=== PATIENT | female | born 1945 | race Caucasian/White ===

== ENCOUNTER 2022-06-23 02:12 | Inpatient (IN) | payer MEDICARE ==
[~2022-06-23 02:12] MED LIST: Nitroglycerin 50 MG/250 ML BOT 250 ML ONE
[2022-06-23] MEDS ORDERED: Morphine 4 MG/ML VIAL ONE (03:21)
[2022-06-23 03:32] LABS: CKMB 2.8 ng/mL (0-6.6)
[2022-06-23] MEDS ORDERED: Nitroglycerin 2% Ointment 1 INCH/1 GM Packet ONE (05:21)
[2022-06-23] MEDS ORDERED: methylPREDNISolone Sod Succ 40 MG VIAL ONE (05:59)
[2022-06-23] MEDS ORDERED: Aspirin 325 MG TAB ONE (05:59)
[2022-06-23] MEDS ORDERED: methylPREDNISolone Sod Succ 40 MG VIAL IVP SCH (06:00)
[2022-06-23] MEDS ORDERED: cefTRIAXone\\ROCEPHIN 2 GM in Sodium Chloride 0.9% 100 ML IVPB SCH (06:00)
[2022-06-23] MEDS ORDERED: Aspirin 325 mg Enteric Coated Tablet PO SCH (06:00)
[2022-06-23] MEDS ORDERED: cefTRIAXone\\ROCEPHIN 2 GM VIAL ONE (06:00)
[2022-06-23 06:23] LABS: Anion Gap 16 mmol/L (10-20); BUN (Urea Nitrogen) 10 mg/dL (9.8-20.1); Calc. Creatinine Clearance 0 mL/min (70-130); Calcium 9.1 mg/dL (7.8-10.44); Carbon Dioxide 22 mmol/L (23-31); Chloride 101 mmol/L (98-107); Estimated GFR 90; Glucose 158 mg/dL (83-110); Magnesium 1.8 mg/dL (1.6-2.6); Potassium 3.5 mmol/L (3.5-5.1); Sodium 135 mmol/L (136-145)
[2022-06-23 06:24] LABS: #Monocytes 0.4 10x3/uL (0.0-1.1); #Neutrophils 8.5 10x3/uL (1.5-8.4); %Basophils 0.3 % (0.0-2.0); %Lymphocytes 8.7 % (18.0-47.0); %Monocytes 4.1 % (0.0-10.0); %Neutrophils 86.6 % (40.0-75.0); Hemoglobin 13.5 g/dL (12.0-15.5); Mean Corpuscular HGB CONC 34.4 g/dL (32.0-36.0); Mean Corpuscular Hemoglobin 33.5 pg (27.0-33.0); Mean Corpuscular Volume 97.5 fl (81.6-98.3); Mean Platelet Volume 10.8 fl (7.4-10.4); Platelet Count 235 10x3/uL (150-450); RBC Distribution Width 12.1 % (11.5-14.5); Red Blood Cell (RBC) Count 4.03 10x6/uL (3.90-5.03); White Blood Cell (WBC) Count 9.8 10x3/uL (3.5-10.5)
[2022-06-23 06:30] LABS: Critical Call Chem Troponin I RESULT DECREASING
[2022-06-23] MEDS ORDERED: Promethazine HCl 12.5 MG in Sodium Chloride 0.9% 50 ML IVPB SCH (06:45)
[2022-06-23] MEDS ORDERED: Promethazine HCl 25 MG/ML VIAL ONE (06:46)
[2022-06-23] MEDS ORDERED: Azithromycin 500 MG VIAL ONE (07:19)
[2022-06-23] MEDS: Nitroglycerin 2% Ointment 1 INCH/1 GM Packet TOP SCH ×5 (07:39→21:36)
[2022-06-23] MEDS: Azithromycin 500 MG in Sodium Chloride 0.9% 250 ML 250 ML IVPB SCH (07:40)
[2022-06-23] MEDS: Arformoterol 15 MCG/2 ML NEB NEB SCH ×2 (07:40→19:55)
[2022-06-23] MEDS ORDERED: Dronedarone HCl 400 MG TAB PO SCH (08:00)
[2022-06-23] MEDS ORDERED: Furosemide 40 MG/4 ML VIAL ONE (08:01)
[2022-06-23] MEDS: Amlodipine 10 MG TAB PO SCH (08:12)
[2022-06-23] MEDS: Apixaban 5 MG TAB PO SCH ×2 (08:13→21:12)
[2022-06-23] MEDS: Lisinopril 2.5 MG TAB PO SCH (08:13)
[2022-06-23] MEDS: Propranolol 40 MG TAB PO SCH ×2 (08:13→21:14)
[2022-06-23] MEDS ORDERED: Apixaban 5 MG TAB ONE (08:16)
[2022-06-23] MEDS ORDERED: Amlodipine 10 MG TAB ONE (08:16)
[2022-06-23 09:20] LABS: Legionella Urinary Ag Negative (Negative); Strep pneumo Urine Ag NEGATIVE (NEGATIVE)
[2022-06-23 10:20] VITALS: BMI 31.1
[2022-06-23] MEDS: methylPREDNISolone Sod Succ 40 MG VIAL IVP SCH ×2 (13:23→21:15)
[2022-06-23 14:26] LABS: Troponin I 0.313 ng/mL (< 0.028)
[2022-06-23] MEDS: Acetaminophen 325 MG TAB PO PRN (14:33)
[2022-06-23] MEDS: Dronedarone HCl 400 MG TAB PO SCH (17:25)
[2022-06-23] MEDS ORDERED: Dextrose 50% Abboject 50 ML SYRINGE SLOW IVP PRN (19:14)
[2022-06-23] MEDS ORDERED: Dextrose 5% in Water 1,000 ML IV PRN (19:14)
[2022-06-23] MEDS: Budesonide 0.5 MG/2 ML NEB NEB SCH (20:00)
[2022-06-23] MEDS ORDERED: Non-Formulary Medication 1 EACH (Brimonidine Tartrate/Timolol [Combigan 0.2%-0.5% Eye Drop OP SCH (21:00)
[2022-06-23] MEDS ORDERED: PROPRANOLOL HCL 120 MG PO SCH (21:00)
[2022-06-23] MEDS ORDERED: Timolol 0.5% Ophth Soln 5 ml Bottle EA EYE SCH (21:00)
[2022-06-23] MEDS: Brimonidine Tartrate 0.2% Ophth Soln 5 ml Bottle EA EYE SCH (21:12)
[2022-06-23] MEDS: Gabapentin 300 MG CAP PO SCH (21:13)
[2022-06-23] MEDS: Timolol 0.5% Ophth Soln 5 ml Bottle EA EYE SCH (21:14)
[2022-06-23] MEDS: Rosuvastatin 20 MG TAB PO SCH (21:14)
[2022-06-23] MEDS: Oxybutynin 5 MG TAB PO SCH (21:14)
[2022-06-23] MEDS ORDERED: Primidone 50 MG TAB PO SCH (22:00)
[2022-06-23] MEDS ORDERED: Primidone 250 MG TAB PO SCH (22:00)
[2022-06-24] MEDS ORDERED: Furosemide 40 MG/4 ML VIAL SLOW IVP SCH (01:00)
[2022-06-24 04:14] LABS: Mean Corpuscular HGB CONC 34.3 g/dL (32.0-36.0); Mean Corpuscular Hemoglobin 33.4 pg (27.0-33.0); Mean Corpuscular Volume 97.4 fl (81.6-98.3); Platelet Count 201 10x3/uL (150-450); RBC Distribution Width 12.4 % (11.5-14.5); Red Blood Cell (RBC) Count 4.19 10x6/uL (3.90-5.03); White Blood Cell (WBC) Count 12.2 10x3/uL (3.5-10.5)
[2022-06-24 04:28] LABS: Anion Gap 15 mmol/L (10-20); BUN (Urea Nitrogen) 14 mg/dL (9.8-20.1); Calc. Creatinine Clearance 79 mL/min (70-130); Carbon Dioxide 22 mmol/L (23-31); Chloride 103 mmol/L (98-107); Estimated GFR 67; Glucose 167 mg/dL (83-110); Potassium 3.6 mmol/L (3.5-5.1); Sodium 136 mmol/L (136-145)
[2022-06-24 04:52] LABS: MDiff Complete? YES
[2022-06-24 04:54] LABS: Lymphocytes 13 % (21-51); Monocytes 11 % (0-10); Neutrophil 76 % (42-75)
[2022-06-24 04:55] LABS: Platelet Morphology Comment Appears Adequate; RBC Morphology Normal
[2022-06-24] MEDS: Nitroglycerin 2% Ointment 1 INCH/1 GM Packet TOP SCH ×3 (05:03→21:45)
[2022-06-24] MEDS: methylPREDNISolone Sod Succ 40 MG VIAL IVP SCH (06:38)
[2022-06-24] MEDS: Budesonide 0.5 MG/2 ML NEB NEB SCH ×2 (07:00→19:56)
[2022-06-24] MEDS: Arformoterol 15 MCG/2 ML NEB NEB SCH ×2 (07:00→19:57)
[2022-06-24] MEDS: Potassium Chloride 20 MEQ TAB PO SCH (08:00)
[2022-06-24] MEDS: Aspirin 81 mg Enteric Coated Tablet PO SCH (08:00)
[2022-06-24] MEDS: Venlafaxine HCl XR 75 MG CAP PO SCH (08:00)
[2022-06-24] MEDS: Apixaban 5 MG TAB PO SCH ×2 (08:01→20:33)
[2022-06-24] MEDS: Glimepiride 2 MG TAB PO SCH ×2 (08:01→17:36)
[2022-06-24] MEDS: Brimonidine Tartrate 0.2% Ophth Soln 5 ml Bottle EA EYE SCH ×2 (08:02→20:56)
[2022-06-24] MEDS: Oxybutynin 5 MG TAB PO SCH ×2 (08:02→20:35)
[2022-06-24] MEDS: Timolol 0.5% Ophth Soln 5 ml Bottle EA EYE SCH ×2 (08:02→20:56)
[2022-06-24] MEDS: Amlodipine 10 MG TAB PO SCH (08:10)
[2022-06-24] MEDS: Lisinopril 2.5 MG TAB PO SCH (08:10)
[2022-06-24] MEDS: Propranolol 40 MG TAB PO SCH (08:11)
[2022-06-24] MEDS: Azithromycin 500 MG in Sodium Chloride 0.9% 250 ML 250 ML IVPB SCH (08:14)
[2022-06-24] MEDS: Dronedarone HCl 400 MG TAB PO SCH ×2 (08:20→20:34)
[2022-06-24] MEDS ORDERED: Primidone 50 MG TAB PO SCH (09:00)
[2022-06-24] MEDS ORDERED: Escitalopram Oxalate 10 mg Tablet PO SCH (09:00)
[2022-06-24] MEDS ORDERED: Rosuvastatin 20 MG TAB PO SCH (09:00)
[2022-06-24] MEDS ORDERED: Atropine Sulfate 1 mg/10 ml Syringe ONE (09:31)
[2022-06-24 10:29] LABS: Actual Bicarbonate (HCO3v) 25 mEq/L (22-28); Base Excess -0.8 mEq/L (-2.0 to +3.0); Calcium, Ionized (venous) 1.11 mmol/L (1.16-1.32); Chloride (VBG) 101 mmol/L (98-106); Hemoglobin (Hb) 14.2 g/dL (11.7-16.1); Puncture Site Other Site; pH (venous) 7.36 (7.32-7.43)
[2022-06-24] MEDS ORDERED: tiZANidine HCl 4 MG TAB PO PRN (12:36)
[2022-06-24] MEDS: Acetaminophen 325 MG TAB PO PRN ×2 (13:34→20:38)
[2022-06-24] MEDS ORDERED: Dextrose 50% Abboject 50 ML SYRINGE SLOW IVP PRN (14:15)
[2022-06-24] MEDS ORDERED: Dextrose 5% in Water 1,000 ML IV PRN (14:15)
[2022-06-24] MEDS ORDERED: Primidone 250 MG TAB PO SCH (15:00)
[2022-06-24] MEDS: Topiramate 100 MG TAB PO SCH (15:28)
[2022-06-24] MEDS: Acyclovir 400 mg Tablet PO SCH (20:33)
[2022-06-24] MEDS: Gabapentin 300 MG CAP PO SCH (20:34)
[2022-06-24] MEDS: Fluticasone Propionate Nasal Spray 16 gm Bottle NASAL SCH (20:34)
[2022-06-24] MEDS: Melatonin 3 MG TAB PO SCH (20:35)
[2022-06-24] MEDS: Rosuvastatin 20 MG TAB PO SCH (20:36)
[2022-06-24] MEDS: Primidone 50 MG TAB PO SCH (20:55)
[2022-06-25] MEDS: Acetaminophen 325 MG TAB PO PRN ×3 (04:15→17:55)
[2022-06-25] MEDS: Levothyroxine Sodium 100 MCG TAB PO SCH (06:37)
[2022-06-25] MEDS: Arformoterol 15 MCG/2 ML NEB NEB SCH ×2 (07:20→20:20)
[2022-06-25] MEDS: Budesonide 0.5 MG/2 ML NEB NEB SCH ×2 (07:20→20:15)
[2022-06-25] MEDS: Nitroglycerin 2% Ointment 1 INCH/1 GM Packet TOP SCH ×3 (07:42→22:06)
[2022-06-25] MEDS ORDERED: predniSONE 20 MG TAB PO SCH (08:00)
[2022-06-25] MEDS: Aspirin 81 mg Enteric Coated Tablet PO SCH (08:23)
[2022-06-25] MEDS: Glimepiride 2 MG TAB PO SCH ×3 (08:23→17:04)
[2022-06-25] MEDS: Lisinopril 2.5 MG TAB PO SCH (08:25)
[2022-06-25] MEDS: Potassium Chloride 20 MEQ TAB PO SCH (08:26)
[2022-06-25] MEDS: Estradiol 1 MG TAB PO SCH (08:26)
[2022-06-25] MEDS: Apixaban 5 MG TAB PO SCH ×2 (08:26→20:30)
[2022-06-25] MEDS: Venlafaxine HCl XR 75 MG CAP PO SCH (08:26)
[2022-06-25] MEDS: Acyclovir 400 mg Tablet PO SCH ×2 (08:26→20:46)
[2022-06-25] MEDS: Amlodipine 10 MG TAB PO SCH (08:26)
[2022-06-25] MEDS: Topiramate 100 MG TAB PO SCH ×2 (08:27→17:00)
[2022-06-25] MEDS: predniSONE 10 MG TAB PO SCH (08:27)
[2022-06-25] MEDS: Primidone 50 MG TAB PO SCH ×3 (08:29→20:30)
[2022-06-25] MEDS: Oxybutynin 5 MG TAB PO SCH ×2 (08:30→20:46)
[2022-06-25] MEDS: Azithromycin 500 MG in Sodium Chloride 0.9% 250 ML 250 ML IVPB SCH (08:32)
[2022-06-25] MEDS ORDERED: VANCOMYCIN 1.25 GM/250 ML BAG IVPB SCH (09:30)
[2022-06-25] MEDS: Dronedarone HCl 400 MG TAB PO SCH ×2 (09:32→20:31)
[2022-06-25] MEDS: Timolol 0.5% Ophth Soln 5 ml Bottle EA EYE SCH ×2 (09:49→20:44)
[2022-06-25] MEDS: Brimonidine Tartrate 0.2% Ophth Soln 5 ml Bottle EA EYE SCH ×2 (09:49→20:43)
[2022-06-25] MEDS: Fluticasone Propionate Nasal Spray 16 gm Bottle NASAL SCH ×2 (09:49→20:43)
[2022-06-25] MEDS ORDERED: VANCOMYCIN 1.75 GM/350 ML BAG 1.75 GM in Premix Bag 1 BAG IVPB SCH (10:00)
[2022-06-25 13:28] LABS: Bilirubin Neg (Negative); Blood, Urine 250 (Negative); Clarity Clear (Clear); Glucose, Urine (Dipstick) Normal (Negative); Ketone, Urine Negative (Negative); Leukocyte Negative (Negative); Nitrite Negative (Negative); Protein, Urine (Dipstick) 15 mg/dl (Neg-Trace); Urobilinogen Normal mg/dL (Less than 2)
[2022-06-25 13:33] LABS: Squamous Epithelial 0-3 HPF (0-3); WBC/HPF 0-3 HPF (0-3)
[2022-06-25 13:34] LABS: Bacteria/HPF None Seen HPF (None Seen)
[2022-06-25] MEDS ORDERED: Metoclopramide HCl 10 MG/2 ML VIAL IVP PRN (14:02)
[2022-06-25] MEDS: Carvedilol 3.125 MG TAB PO SCH (16:58)
[2022-06-25] MEDS: Vancomycin HCl 1 GM in Sodium Chloride 0.9% 250 ML 250 ML IVPB SCH (20:28)
[2022-06-25] MEDS: Rosuvastatin 20 MG TAB PO SCH (20:29)
[2022-06-25] MEDS: Gabapentin 300 MG CAP PO SCH (20:30)
[2022-06-25] MEDS: Melatonin 3 MG TAB PO SCH (20:46)
[2022-06-26 04:49] LABS: #Eosinphils 0.2 10x3/uL (0.0-0.5); #Monocytes 0.9 10x3/uL (0.0-1.1); %Basophils 0.4 % (0.0-2.0); %Eosinophils 2.4 % (0.0-6.0); %Lymphocytes 20.8 % (18.0-47.0); %Neutrophils 66.1 % (40.0-75.0); Hemoglobin 13.1 g/dL (12.0-15.5); Mean Corpuscular HGB CONC 34.5 g/dL (32.0-36.0); Mean Corpuscular Hemoglobin 33.4 pg (27.0-33.0); Mean Corpuscular Volume 96.9 fl (81.6-98.3); Mean Platelet Volume 10.6 fl (7.4-10.4); Platelet Count 222 10x3/uL (150-450); RBC Distribution Width 12.2 % (11.5-14.5); Red Blood Cell (RBC) Count 3.92 10x6/uL (3.90-5.03); White Blood Cell (WBC) Count 9.1 10x3/uL (3.5-10.5)
[2022-06-26 04:55] LABS: ALT (SGPT) 109 U/L (8-55); AST (SGOT) 209 U/L (5-34); Albumin 3.9 g/dL (3.4-4.8); Alkaline Phosphatase 72 U/L (40-110); Anion Gap 18 mmol/L (10-20); BUN (Urea Nitrogen) 10 mg/dL (9.8-20.1); Bilirubin, Total 0.3 mg/dL (0.2-1.2); Calc. Creatinine Clearance 110 mL/min (70-130); Calcium 9.6 mg/dL (7.8-10.44); Carbon Dioxide 21 mmol/L (23-31); Chloride 102 mmol/L (98-107); Estimated GFR 92; Globulin 3.6 g/dL (2.4-3.5); Glucose 86 mg/dL (83-110); Magnesium 2.1 mg/dL (1.6-2.6); Phosphorus 1.8 mg/dL (2.3-4.7); Potassium 3.8 mmol/L (3.5-5.1); Protein, Total 7.5 g/dL (5.8-8.1); Sodium 137 mmol/L (136-145)
[2022-06-26] MEDS: Arformoterol 15 MCG/2 ML NEB NEB SCH ×2 (06:30→20:40)
[2022-06-26] MEDS: Budesonide 0.5 MG/2 ML NEB NEB SCH ×2 (06:30→20:30)
[2022-06-26] MEDS: Levothyroxine Sodium 100 MCG TAB PO SCH (06:42)
[2022-06-26] MEDS: Nitroglycerin 2% Ointment 1 INCH/1 GM Packet TOP SCH ×3 (06:43→21:20)
[2022-06-26] MEDS: Carvedilol 3.125 MG TAB PO SCH (07:58)
[2022-06-26] MEDS: predniSONE 10 MG TAB PO SCH (07:58)
[2022-06-26] MEDS: Amlodipine 10 MG TAB PO SCH (07:59)
[2022-06-26] MEDS: Potassium Chloride 20 MEQ TAB PO SCH (07:59)
[2022-06-26] MEDS: Apixaban 5 MG TAB PO SCH ×2 (07:59→21:16)
[2022-06-26] MEDS: Lisinopril 2.5 MG TAB PO SCH (08:00)
[2022-06-26] MEDS: Aspirin 81 mg Enteric Coated Tablet PO SCH (08:01)
[2022-06-26] MEDS: Venlafaxine HCl XR 75 MG CAP PO SCH (08:01)
[2022-06-26] MEDS: Brimonidine Tartrate 0.2% Ophth Soln 5 ml Bottle EA EYE SCH ×2 (08:02→21:19)
[2022-06-26] MEDS: Oxybutynin 5 MG TAB PO SCH ×2 (08:02→21:18)
[2022-06-26] MEDS: Acyclovir 400 mg Tablet PO SCH ×2 (08:02→21:16)
[2022-06-26] MEDS: Dronedarone HCl 400 MG TAB PO SCH ×2 (08:04→21:18)
[2022-06-26] MEDS: Primidone 50 MG TAB PO SCH ×3 (08:05→21:17)
[2022-06-26] MEDS: Glimepiride 2 MG TAB PO SCH ×2 (08:05→10:10)
[2022-06-26] MEDS: Timolol 0.5% Ophth Soln 5 ml Bottle EA EYE SCH ×2 (08:06→21:20)
[2022-06-26] MEDS: Azithromycin 500 MG in Sodium Chloride 0.9% 250 ML 250 ML IVPB SCH (08:09)
[2022-06-26] MEDS: Fluticasone Propionate Nasal Spray 16 gm Bottle NASAL SCH ×2 (08:10→21:19)
[2022-06-26] MEDS: Acetaminophen 325 MG TAB PO PRN ×2 (08:30→21:32)
[2022-06-26] MEDS: Topiramate 100 MG TAB PO SCH ×2 (08:31→16:57)
[2022-06-26] MEDS: Estradiol 1 MG TAB PO SCH (08:31)
[2022-06-26] MEDS: Vancomycin HCl 1 GM in Sodium Chloride 0.9% 250 ML 250 ML IVPB SCH (09:58)
[2022-06-26] MEDS: guaiFENesin ER 600 MG TAB PO SCH ×2 (09:58→21:22)
[2022-06-26] MEDS: Senokot S 8.6-50 MG TAB PO SCH ×2 (09:59→21:16)
[2022-06-26] MEDS: Polyethylene Glycol 3350 17 GM Packet PER TUBE SCH (09:59)
[2022-06-26] MEDS: HumaLOG 300 UNITS/3 ML VIAL SC PRN (12:03)
[2022-06-26] MEDS: Oxacillin 2 GM in Sodium Chloride 0.9% 100 ML IVPB SCH ×3 (13:08→21:12)
[2022-06-26] MEDS: Carvedilol 6.25 MG TAB PO SCH (15:39)
[2022-06-26] MEDS: Gabapentin 300 MG CAP PO SCH (21:15)
[2022-06-26] MEDS: Rosuvastatin 20 MG TAB PO SCH (21:15)
[2022-06-26] MEDS: Zolpidem Tartrate 5 MG TAB PO PRN (21:16)
[2022-06-26] MEDS: Melatonin 3 MG TAB PO SCH (21:18)
[2022-06-27] MEDS: Oxacillin 2 GM in Sodium Chloride 0.9% 100 ML IVPB SCH ×6 (00:24→21:07)
[2022-06-27 04:18] LABS: #Basophils 0.1 10x3/uL (0.0-0.2); #Eosinphils 0.1 10x3/uL (0.0-0.5); #Monocytes 0.8 10x3/uL (0.0-1.1); #Neutrophils 4.4 10x3/uL (1.5-8.4); %Basophils 0.7 % (0.0-2.0); %Eosinophils 1.9 % (0.0-6.0); %Lymphocytes 24.9 % (18.0-47.0); %Monocytes 10.8 % (0.0-10.0); %Neutrophils 61.4 % (40.0-75.0); Mean Corpuscular HGB CONC 34.9 g/dL (32.0-36.0); Mean Corpuscular Hemoglobin 33.6 pg (27.0-33.0); Mean Corpuscular Volume 96.4 fl (81.6-98.3); Mean Platelet Volume 10.9 fl (7.4-10.4); Platelet Count 252 10x3/uL (150-450); RBC Distribution Width 12.2 % (11.5-14.5); Red Blood Cell (RBC) Count 3.57 10x6/uL (3.90-5.03); White Blood Cell (WBC) Count 7.2 10x3/uL (3.5-10.5)
[2022-06-27 04:41] LABS: ALT (SGPT) 89 U/L (8-55); AST (SGOT) 127 U/L (5-34); Albumin 3.4 g/dL (3.4-4.8); Alkaline Phosphatase 60 U/L (40-110); Anion Gap 14 mmol/L (10-20); BUN (Urea Nitrogen) 9 mg/dL (9.8-20.1); Bilirubin, Total 0.3 mg/dL (0.2-1.2); Calc. Creatinine Clearance 111 mL/min (70-130); Calcium 8.9 mg/dL (7.8-10.44); Carbon Dioxide 21 mmol/L (23-31); Chloride 106 mmol/L (98-107); Estimated GFR 92; Globulin 3.4 g/dL (2.4-3.5); Glucose 108 mg/dL (83-110); Magnesium 2.1 mg/dL (1.6-2.6); Phosphorus 2.7 mg/dL (2.3-4.7); Potassium 3.7 mmol/L (3.5-5.1); Protein, Total 6.8 g/dL (5.8-8.1); Sodium 137 mmol/L (136-145)
[2022-06-27] MEDS: Levothyroxine Sodium 100 MCG TAB PO SCH (06:19)
[2022-06-27] MEDS: Nitroglycerin 2% Ointment 1 INCH/1 GM Packet TOP SCH ×3 (06:19→20:35)
[2022-06-27] MEDS: Potassium Chloride 20 MEQ TAB PO SCH (08:21)
[2022-06-27] MEDS: Aspirin 81 mg Enteric Coated Tablet PO SCH (08:21)
[2022-06-27] MEDS: Amlodipine 10 MG TAB PO SCH (08:21)
[2022-06-27] MEDS: Senokot S 8.6-50 MG TAB PO SCH (08:21)
[2022-06-27] MEDS: Venlafaxine HCl XR 75 MG CAP PO SCH (08:21)
[2022-06-27] MEDS: Apixaban 5 MG TAB PO SCH ×2 (08:21→20:38)
[2022-06-27] MEDS: Carvedilol 6.25 MG TAB PO SCH ×2 (08:22→17:09)
[2022-06-27] MEDS: Dronedarone HCl 400 MG TAB PO SCH ×2 (08:22→20:39)
[2022-06-27] MEDS: Lisinopril 2.5 MG TAB PO SCH (08:22)
[2022-06-27] MEDS: predniSONE 10 MG TAB PO SCH (08:22)
[2022-06-27] MEDS: guaiFENesin ER 600 MG TAB PO SCH ×2 (08:22→20:39)
[2022-06-27] MEDS: Polyethylene Glycol 3350 17 GM Packet PER TUBE SCH (08:23)
[2022-06-27] MEDS: Topiramate 100 MG TAB PO SCH ×2 (09:14→15:36)
[2022-06-27] MEDS: Primidone 50 MG TAB PO SCH ×3 (09:14→20:35)
[2022-06-27] MEDS: Oxybutynin 5 MG TAB PO SCH ×2 (09:14→20:40)
[2022-06-27] MEDS: Acyclovir 400 mg Tablet PO SCH ×2 (09:14→21:00)
[2022-06-27] MEDS: Estradiol 1 MG TAB PO SCH (09:14)
[2022-06-27] MEDS: Budesonide 0.5 MG/2 ML NEB NEB SCH (09:15)
[2022-06-27] MEDS: Fluticasone Propionate Nasal Spray 16 gm Bottle NASAL SCH ×2 (09:16→20:42)
[2022-06-27] MEDS: Timolol 0.5% Ophth Soln 5 ml Bottle EA EYE SCH ×2 (09:16→20:46)
[2022-06-27] MEDS: Brimonidine Tartrate 0.2% Ophth Soln 5 ml Bottle EA EYE SCH ×2 (09:16→20:46)
[2022-06-27] MEDS: Arformoterol 15 MCG/2 ML NEB NEB SCH (09:25)
[2022-06-27] MEDS: Acetaminophen 325 MG TAB PO PRN (10:14)
[2022-06-27] MEDS: HumaLOG 300 UNITS/3 ML VIAL SC PRN ×2 (11:45→15:48)
[2022-06-27] MEDS: Gabapentin 300 MG CAP PO SCH (20:38)
[2022-06-27] MEDS: Rosuvastatin 20 MG TAB PO SCH (20:39)
[2022-06-27] MEDS: Melatonin 3 MG TAB PO SCH (20:40)
[2022-06-28] MEDS: Budesonide 0.5 MG/2 ML NEB NEB SCH ×3 (01:25→20:08)
[2022-06-28] MEDS: Arformoterol 15 MCG/2 ML NEB NEB SCH ×3 (01:25→20:09)
[2022-06-28] MEDS: Oxacillin 2 GM in Sodium Chloride 0.9% 100 ML IVPB SCH ×6 (02:00→23:29)
[2022-06-28] MEDS ORDERED: Amlodipine 5 MG TAB PO SCH (02:15)
[2022-06-28] MEDS: Senokot S 8.6-50 MG TAB PO SCH ×3 (03:18→23:35)
[2022-06-28] MEDS: Levothyroxine Sodium 100 MCG TAB PO SCH (05:39)
[2022-06-28] MEDS: Nitroglycerin 2% Ointment 1 INCH/1 GM Packet TOP SCH ×3 (06:16→23:38)
[2022-06-28] MEDS: Acyclovir 400 mg Tablet PO SCH ×2 (08:03→23:37)
[2022-06-28] MEDS: Primidone 50 MG TAB PO SCH ×3 (08:03→23:35)
[2022-06-28] MEDS: hydrALAZINE 25 MG TAB PO SCH ×3 (08:04→23:36)
[2022-06-28] MEDS: Apixaban 5 MG TAB PO SCH ×2 (08:04→23:37)
[2022-06-28] MEDS: Dronedarone HCl 400 MG TAB PO SCH ×2 (08:04→23:36)
[2022-06-28] MEDS: Topiramate 100 MG TAB PO SCH ×2 (08:04→16:57)
[2022-06-28] MEDS: predniSONE 10 MG TAB PO SCH (08:04)
[2022-06-28] MEDS: guaiFENesin ER 600 MG TAB PO SCH ×2 (08:04→23:38)
[2022-06-28] MEDS: Lisinopril 5 MG TAB PO SCH ×2 (08:04→23:37)
[2022-06-28] MEDS: Oxybutynin 5 MG TAB PO SCH ×2 (08:04→23:37)
[2022-06-28] MEDS: Carvedilol 6.25 MG TAB PO SCH ×2 (08:05→16:57)
[2022-06-28] MEDS: Estradiol 1 MG TAB PO SCH (08:05)
[2022-06-28] MEDS: Polyethylene Glycol 3350 17 GM Packet PER TUBE SCH (08:05)
[2022-06-28] MEDS: Venlafaxine HCl XR 75 MG CAP PO SCH (08:05)
[2022-06-28] MEDS: Potassium Chloride 20 MEQ TAB PO SCH (08:05)
[2022-06-28] MEDS: Amlodipine 10 MG TAB PO SCH (08:05)
[2022-06-28] MEDS: Aspirin 81 mg Enteric Coated Tablet PO SCH (08:05)
[2022-06-28] MEDS: Timolol 0.5% Ophth Soln 5 ml Bottle EA EYE SCH ×2 (08:06→23:30)
[2022-06-28] MEDS: Brimonidine Tartrate 0.2% Ophth Soln 5 ml Bottle EA EYE SCH ×2 (08:06→23:31)
[2022-06-28] MEDS: Fluticasone Propionate Nasal Spray 16 gm Bottle NASAL SCH ×2 (08:06→23:30)
[2022-06-28] MEDS: Acetaminophen 325 MG TAB PO PRN (08:22)
[2022-06-28] MEDS: HumaLOG 300 UNITS/3 ML VIAL SC PRN ×2 (11:48→16:57)
[2022-06-28] MEDS ORDERED: Bisacodyl 10 MG SUPP PR SCH (13:00)
[2022-06-28 14:12] LABS: #Monocytes 0.2 10x3/uL (0.0-1.1); #Neutrophils 8.1 10x3/uL (1.5-8.4); %Basophils 0.4 % (0.0-2.0); %Eosinophils 0.3 % (0.0-6.0); %Lymphocytes 9.9 % (18.0-47.0); %Monocytes 2.3 % (0.0-10.0); %Neutrophils 86.5 % (40.0-75.0); Hemoglobin 12.4 g/dL (12.0-15.5); Mean Corpuscular HGB CONC 34.7 g/dL (32.0-36.0); Mean Corpuscular Hemoglobin 33.7 pg (27.0-33.0); Platelet Count 333 10x3/uL (150-450); RBC Distribution Width 12.1 % (11.5-14.5); Red Blood Cell (RBC) Count 3.68 10x6/uL (3.90-5.03); White Blood Cell (WBC) Count 9.4 10x3/uL (3.5-10.5)
[2022-06-28 14:23] LABS: ALT (SGPT) 68 U/L (8-55); AST (SGOT) 59 U/L (5-34); Albumin 3.6 g/dL (3.4-4.8); Alkaline Phosphatase 65 U/L (40-110); Anion Gap 14 mmol/L (10-20); BUN (Urea Nitrogen) 9 mg/dL (9.8-20.1); Bilirubin, Total 0.2 mg/dL (0.2-1.2); Calc. Creatinine Clearance 105 mL/min (70-130); Calcium 9.4 mg/dL (7.8-10.44); Carbon Dioxide 20 mmol/L (23-31); Chloride 105 mmol/L (98-107); Estimated GFR 91; Globulin 3.7 g/dL (2.4-3.5); Glucose 170 mg/dL (83-110); Potassium 4.2 mmol/L (3.5-5.1); Protein, Total 7.3 g/dL (5.8-8.1); Sodium 135 mmol/L (136-145)
[2022-06-28] MEDS: Rosuvastatin 20 MG TAB PO SCH (23:35)
[2022-06-28] MEDS: Gabapentin 300 MG CAP PO SCH (23:36)
[2022-06-28] MEDS: Melatonin 3 MG TAB PO SCH (23:38)
[2022-06-28] MEDS: Zolpidem Tartrate 5 MG TAB PO PRN (23:46)
[2022-06-29] MEDS ORDERED: GUAIFENESIN SF SOLN 200 MG/10 ML UDCUP PO SCH (01:30)
[2022-06-29] MEDS: Oxacillin 2 GM in Sodium Chloride 0.9% 100 ML IVPB SCH ×6 (03:33→22:12)
[2022-06-29 05:34] LABS: ALT (SGPT) 47 U/L (8-55); AST (SGOT) 40 U/L (5-34); Albumin 3.3 g/dL (3.4-4.8); Alkaline Phosphatase 55 U/L (40-110); Anion Gap 13 mmol/L (10-20); BUN (Urea Nitrogen) 12 mg/dL (9.8-20.1); Bilirubin, Total 0.3 mg/dL (0.2-1.2); Calc. Creatinine Clearance 110 mL/min (70-130); Calcium 9.1 mg/dL (7.8-10.44); Carbon Dioxide 20 mmol/L (23-31); Chloride 106 mmol/L (98-107); Estimated GFR 92; Globulin 3.4 g/dL (2.4-3.5); Glucose 110 mg/dL (83-110); Potassium 3.6 mmol/L (3.5-5.1); Protein, Total 6.7 g/dL (5.8-8.1); Sodium 135 mmol/L (136-145)
[2022-06-29 05:42] LABS: #Basophils 0.1 10x3/uL (0.0-0.2); #Eosinphils 0.3 10x3/uL (0.0-0.5); #Monocytes 0.7 10x3/uL (0.0-1.1); #Neutrophils 5.7 10x3/uL (1.5-8.4); %Basophils 0.8 % (0.0-2.0); %Eosinophils 3.5 % (0.0-6.0); %Lymphocytes 25.1 % (18.0-47.0); %Monocytes 7.9 % (0.0-10.0); Mean Corpuscular HGB CONC 35.1 g/dL (32.0-36.0); Mean Corpuscular Hemoglobin 33.7 pg (27.0-33.0); Mean Corpuscular Volume 96.1 fl (81.6-98.3); Mean Platelet Volume 10.6 fl (7.4-10.4); Platelet Count 354 10x3/uL (150-450); RBC Distribution Width 11.9 % (11.5-14.5); Red Blood Cell (RBC) Count 3.56 10x6/uL (3.90-5.03); White Blood Cell (WBC) Count 9.2 10x3/uL (3.5-10.5)
[2022-06-29] MEDS: Levothyroxine Sodium 100 MCG TAB PO SCH (06:39)
[2022-06-29] MEDS: hydrALAZINE 25 MG TAB PO SCH ×3 (06:40→22:14)
[2022-06-29] MEDS: Nitroglycerin 2% Ointment 1 INCH/1 GM Packet TOP SCH ×3 (06:40→22:21)
[2022-06-29] MEDS: Arformoterol 15 MCG/2 ML NEB NEB SCH ×2 (07:45→20:16)
[2022-06-29] MEDS: Budesonide 0.5 MG/2 ML NEB NEB SCH (08:28)
[2022-06-29] MEDS: Fluticasone Propionate Nasal Spray 16 gm Bottle NASAL SCH ×2 (08:35→22:00)
[2022-06-29] MEDS: Apixaban 5 MG TAB PO SCH ×2 (08:35→22:18)
[2022-06-29] MEDS: predniSONE 10 MG TAB PO SCH (08:36)
[2022-06-29] MEDS: Acyclovir 400 mg Tablet PO SCH ×2 (08:36→22:15)
[2022-06-29] MEDS: Potassium Chloride 20 MEQ TAB PO SCH (08:36)
[2022-06-29] MEDS: Oxybutynin 5 MG TAB PO SCH ×2 (08:36→22:15)
[2022-06-29] MEDS: Estradiol 1 MG TAB PO SCH (08:36)
[2022-06-29] MEDS: Venlafaxine HCl XR 75 MG CAP PO SCH (08:36)
[2022-06-29] MEDS: Senokot S 8.6-50 MG TAB PO SCH ×2 (08:36→22:00)
[2022-06-29] MEDS: guaiFENesin ER 600 MG TAB PO SCH ×2 (08:36→22:18)
[2022-06-29] MEDS: Topiramate 100 MG TAB PO SCH ×2 (08:37→16:13)
[2022-06-29] MEDS: Carvedilol 6.25 MG TAB PO SCH ×2 (08:37→16:13)
[2022-06-29] MEDS: Dronedarone HCl 400 MG TAB PO SCH ×2 (08:37→22:00)
[2022-06-29] MEDS: Aspirin 81 mg Enteric Coated Tablet PO SCH (08:37)
[2022-06-29] MEDS: Polyethylene Glycol 3350 17 GM Packet PER TUBE SCH (08:37)
[2022-06-29] MEDS: Amlodipine 10 MG TAB PO SCH (08:37)
[2022-06-29] MEDS: Brimonidine Tartrate 0.2% Ophth Soln 5 ml Bottle EA EYE SCH ×2 (08:37→22:00)
[2022-06-29] MEDS: Primidone 50 MG TAB PO SCH ×3 (08:37→22:13)
[2022-06-29] MEDS: Timolol 0.5% Ophth Soln 5 ml Bottle EA EYE SCH ×2 (08:43→22:00)
[2022-06-29] MEDS: Acetaminophen 325 MG TAB PO PRN (11:46)
[2022-06-29] MEDS: HumaLOG 300 UNITS/3 ML VIAL SC PRN (11:46)
[2022-06-29] MEDS: Lisinopril 5 MG TAB PO SCH ×2 (22:00→22:15)
[2022-06-29] MEDS: Gabapentin 300 MG CAP PO SCH (22:16)
[2022-06-29] MEDS: Rosuvastatin 20 MG TAB PO SCH (22:16)
[2022-06-29] MEDS: Melatonin 3 MG TAB PO SCH (22:17)
[2022-06-29] MEDS: Zolpidem Tartrate 5 MG TAB PO PRN (22:24)
[2022-06-30] MEDS: Oxacillin 2 GM in Sodium Chloride 0.9% 100 ML IVPB SCH ×4 (01:15→13:15)
[2022-06-30 05:21] LABS: #Basophils 0.1 10x3/uL (0.0-0.2); #Eosinphils 0.4 10x3/uL (0.0-0.5); #Neutrophils 7.1 10x3/uL (1.5-8.4); %Eosinophils 3.1 % (0.0-6.0); %Lymphocytes 24.9 % (18.0-47.0); %Monocytes 8.4 % (0.0-10.0); %Neutrophils 61.6 % (40.0-75.0); ALT (SGPT) 47 U/L (8-55); AST (SGOT) 31 U/L (5-34); Albumin 3.6 g/dL (3.4-4.8); Alkaline Phosphatase 59 U/L (40-110); Anion Gap 13 mmol/L (10-20); BUN (Urea Nitrogen) 11 mg/dL (9.8-20.1); Bilirubin, Total 0.2 mg/dL (0.2-1.2); Calc. Creatinine Clearance 102 mL/min (70-130); Calcium 9.3 mg/dL (7.8-10.44); Carbon Dioxide 21 mmol/L (23-31); Chloride 105 mmol/L (98-107); Estimated GFR 90; Globulin 3.8 g/dL (2.4-3.5); Glucose 109 mg/dL (83-110); Hemoglobin 13.1 g/dL (12.0-15.5); Mean Corpuscular HGB CONC 34.8 g/dL (32.0-36.0); Mean Corpuscular Hemoglobin 33.8 pg (27.0-33.0); Mean Corpuscular Volume 96.9 fl (81.6-98.3); Mean Platelet Volume 11.1 fl (7.4-10.4); Platelet Count 462 10x3/uL (150-450); Potassium 3.7 mmol/L (3.5-5.1); Protein, Total 7.4 g/dL (5.8-8.1); RBC Distribution Width 12.4 % (11.5-14.5); Red Blood Cell (RBC) Count 3.88 10x6/uL (3.90-5.03); Sodium 135 mmol/L (136-145); White Blood Cell (WBC) Count 11.5 10x3/uL (3.5-10.5)
[2022-06-30] MEDS: Levothyroxine Sodium 100 MCG TAB PO SCH (06:13)
[2022-06-30] MEDS: Nitroglycerin 2% Ointment 1 INCH/1 GM Packet TOP SCH ×3 (06:13→21:47)
[2022-06-30] MEDS: Arformoterol 15 MCG/2 ML NEB NEB SCH ×2 (07:28→20:15)
[2022-06-30] MEDS: Potassium Chloride 20 MEQ TAB PO SCH (09:49)
[2022-06-30] MEDS: Amlodipine 10 MG TAB PO SCH (09:50)
[2022-06-30] MEDS: Oxybutynin 5 MG TAB PO SCH ×2 (09:50→21:40)
[2022-06-30] MEDS: predniSONE 10 MG TAB PO SCH (09:50)
[2022-06-30] MEDS: Carvedilol 6.25 MG TAB PO SCH (09:50)
[2022-06-30] MEDS: Venlafaxine HCl XR 75 MG CAP PO SCH (09:50)
[2022-06-30] MEDS: Dronedarone HCl 400 MG TAB PO SCH ×2 (09:51→21:37)
[2022-06-30] MEDS: guaiFENesin ER 600 MG TAB PO SCH ×2 (09:51→21:41)
[2022-06-30] MEDS: Aspirin 81 mg Enteric Coated Tablet PO SCH (09:51)
[2022-06-30] MEDS: Polyethylene Glycol 3350 17 GM Packet PER TUBE SCH (09:51)
[2022-06-30] MEDS: Acyclovir 400 mg Tablet PO SCH ×2 (09:52→21:40)
[2022-06-30] MEDS: Estradiol 1 MG TAB PO SCH (09:53)
[2022-06-30] MEDS: Primidone 50 MG TAB PO SCH ×3 (09:54→21:39)
[2022-06-30] MEDS: Fluticasone Propionate Nasal Spray 16 gm Bottle NASAL SCH ×2 (09:55→21:49)
[2022-06-30] MEDS: Timolol 0.5% Ophth Soln 5 ml Bottle EA EYE SCH ×2 (09:56→21:42)
[2022-06-30] MEDS: Brimonidine Tartrate 0.2% Ophth Soln 5 ml Bottle EA EYE SCH ×2 (10:23→21:42)
[2022-06-30] MEDS: Topiramate 100 MG TAB PO SCH ×2 (10:24→16:39)
[2022-06-30] MEDS: Apixaban 5 MG TAB PO SCH ×2 (10:25→21:41)
[2022-06-30] MEDS: Senokot S 8.6-50 MG TAB PO SCH ×2 (10:25→21:45)
[2022-06-30] MEDS: hydrALAZINE 25 MG TAB PO SCH ×3 (10:28→23:48)
[2022-06-30] MEDS ORDERED: Bisacodyl 10 MG SUPP PR SCH (14:00)
[2022-06-30] MEDS: Acetaminophen 325 MG TAB PO PRN ×2 (15:58→21:56)
[2022-06-30] MEDS: Carvedilol 12.5 MG TAB PO SCH (16:39)
[2022-06-30] MEDS: Doxycycline 100 MG CAP PO SCH (18:26)
[2022-06-30] MEDS: Rosuvastatin 20 MG TAB PO SCH (21:39)
[2022-06-30] MEDS: Lisinopril 5 MG TAB PO SCH (21:39)
[2022-06-30] MEDS: Melatonin 3 MG TAB PO SCH (21:40)
[2022-06-30] MEDS: Gabapentin 300 MG CAP PO SCH (21:40)
[2022-07-01] MEDS: Acetaminophen 325 MG TAB PO PRN (04:12)
[2022-07-01 05:28] LABS: #Basophils 0.1 10x3/uL (0.0-0.2); #Eosinphils 0.3 10x3/uL (0.0-0.5); #Neutrophils 6.4 10x3/uL (1.5-8.4); %Basophils 1.1 % (0.0-2.0); %Eosinophils 2.7 % (0.0-6.0); %Lymphocytes 24.5 % (18.0-47.0); %Monocytes 9.5 % (0.0-10.0); %Neutrophils 60.6 % (40.0-75.0); Hemoglobin 11.9 g/dL (12.0-15.5); Mean Corpuscular HGB CONC 34.6 g/dL (32.0-36.0); Mean Corpuscular Hemoglobin 33.7 pg (27.0-33.0); Mean Corpuscular Volume 97.5 fl (81.6-98.3); Mean Platelet Volume 10.9 fl (7.4-10.4); Platelet Count 444 10x3/uL (150-450); RBC Distribution Width 12.4 % (11.5-14.5); Red Blood Cell (RBC) Count 3.53 10x6/uL (3.90-5.03); White Blood Cell (WBC) Count 10.6 10x3/uL (3.5-10.5)
[2022-07-01] MEDS: Doxycycline 100 MG CAP PO SCH ×2 (05:29→17:49)
[2022-07-01] MEDS: Levothyroxine Sodium 100 MCG TAB PO SCH (05:29)
[2022-07-01] MEDS: Nitroglycerin 2% Ointment 1 INCH/1 GM Packet TOP SCH ×3 (05:30→22:16)
[2022-07-01 05:44] LABS: ALT (SGPT) 34 U/L (8-55); AST (SGOT) 25 U/L (5-34); Albumin 3.4 g/dL (3.4-4.8); Alkaline Phosphatase 56 U/L (40-110); Anion Gap 12 mmol/L (10-20); BUN (Urea Nitrogen) 9 mg/dL (9.8-20.1); Bilirubin, Total 0.2 mg/dL (0.2-1.2); Calc. Creatinine Clearance 115 mL/min (70-130); Carbon Dioxide 20 mmol/L (23-31); Chloride 106 mmol/L (98-107); Estimated GFR 93; Globulin 3.3 g/dL (2.4-3.5); Glucose 104 mg/dL (83-110); Potassium 3.5 mmol/L (3.5-5.1); Protein, Total 6.7 g/dL (5.8-8.1); Sodium 134 mmol/L (136-145)
[2022-07-01] MEDS ORDERED: Doxycycline 100 MG CAP PO SCH (06:00)
[2022-07-01] MEDS: Arformoterol 15 MCG/2 ML NEB NEB SCH ×2 (06:52→19:14)
[2022-07-01] MEDS: Polyethylene Glycol 3350 17 GM Packet PER TUBE SCH (10:20)
[2022-07-01] MEDS: Potassium Chloride 20 MEQ TAB PO SCH (10:21)
[2022-07-01] MEDS: hydrALAZINE 25 MG TAB PO SCH ×3 (10:21→22:14)
[2022-07-01] MEDS: predniSONE 20 MG TAB PO SCH (10:21)
[2022-07-01] MEDS: Aspirin 81 mg Enteric Coated Tablet PO SCH (10:21)
[2022-07-01] MEDS: Dronedarone HCl 400 MG TAB PO SCH ×2 (10:22→22:11)
[2022-07-01] MEDS: Amlodipine 10 MG TAB PO SCH (10:22)
[2022-07-01] MEDS: Apixaban 5 MG TAB PO SCH ×2 (10:22→22:15)
[2022-07-01] MEDS: Oxybutynin 5 MG TAB PO SCH ×2 (10:22→22:11)
[2022-07-01] MEDS: Venlafaxine HCl XR 75 MG CAP PO SCH (10:22)
[2022-07-01] MEDS: Acyclovir 400 mg Tablet PO SCH ×2 (10:23→22:17)
[2022-07-01] MEDS: guaiFENesin ER 600 MG TAB PO SCH ×2 (10:23→22:15)
[2022-07-01] MEDS: Carvedilol 12.5 MG TAB PO SCH ×2 (10:23→17:49)
[2022-07-01] MEDS: Fluticasone Propionate Nasal Spray 16 gm Bottle NASAL SCH (10:23)
[2022-07-01] MEDS: Topiramate 100 MG TAB PO SCH ×2 (10:23→16:14)
[2022-07-01] MEDS: Brimonidine Tartrate 0.2% Ophth Soln 5 ml Bottle EA EYE SCH ×2 (10:25→22:45)
[2022-07-01] MEDS: Timolol 0.5% Ophth Soln 5 ml Bottle EA EYE SCH ×2 (10:26→22:45)
[2022-07-01] MEDS: Primidone 50 MG TAB PO SCH ×3 (10:56→22:10)
[2022-07-01] MEDS: Estradiol 1 MG TAB PO SCH (10:56)
[2022-07-01] MEDS: Senokot S 8.6-50 MG TAB PO SCH ×2 (10:56→22:15)
[2022-07-01] MEDS: Rosuvastatin 20 MG TAB PO SCH (22:11)
[2022-07-01] MEDS: Lisinopril 5 MG TAB PO SCH (22:12)
[2022-07-01] MEDS: Gabapentin 300 MG CAP PO SCH (22:13)
[2022-07-01] MEDS: Melatonin 3 MG TAB PO SCH (22:14)
[2022-07-02 05:41] LABS: #Basophils 0.1 10x3/uL (0.0-0.2); #Eosinphils 0.3 10x3/uL (0.0-0.5); #Monocytes 0.9 10x3/uL (0.0-1.1); #Neutrophils 6.2 10x3/uL (1.5-8.4); %Eosinophils 2.7 % (0.0-6.0); %Lymphocytes 22.7 % (18.0-47.0); %Monocytes 9.4 % (0.0-10.0); %Neutrophils 62.9 % (40.0-75.0); Hemoglobin 11.6 g/dL (12.0-15.5); Mean Corpuscular HGB CONC 34.3 g/dL (32.0-36.0); Mean Corpuscular Hemoglobin 33.1 pg (27.0-33.0); Mean Corpuscular Volume 96.6 fl (81.6-98.3); Platelet Count 423 10x3/uL (150-450); RBC Distribution Width 12.7 % (11.5-14.5); White Blood Cell (WBC) Count 9.9 10x3/uL (3.5-10.5)
[2022-07-02] MEDS: Levothyroxine Sodium 100 MCG TAB PO SCH (05:45)
[2022-07-02] MEDS: Nitroglycerin 2% Ointment 1 INCH/1 GM Packet TOP SCH (05:46)
[2022-07-02] MEDS: Doxycycline 100 MG CAP PO SCH (05:49)
[2022-07-02] MEDS: Acetaminophen 325 MG TAB PO PRN (05:57)
[2022-07-02 05:58] LABS: ALT (SGPT) 31 U/L (8-55); Albumin 3.2 g/dL (3.4-4.8); Alkaline Phosphatase 52 U/L (40-110); Anion Gap 12 mmol/L (10-20); BUN (Urea Nitrogen) 14 mg/dL (9.8-20.1); Bilirubin, Total 0.2 mg/dL (0.2-1.2); Calc. Creatinine Clearance 115 mL/min (70-130); Calcium 8.9 mg/dL (7.8-10.44); Carbon Dioxide 20 mmol/L (23-31); Chloride 107 mmol/L (98-107); Estimated GFR 93; Globulin 3.7 g/dL (2.4-3.5); Glucose 101 mg/dL (83-110); Potassium 3.9 mmol/L (3.5-5.1); Protein, Total 6.9 g/dL (5.8-8.1); Sodium 135 mmol/L (136-145)
[2022-07-02 06:00] LABS: AST (SGOT) 33 U/L (5-34)
[2022-07-02] MEDS: Arformoterol 15 MCG/2 ML NEB NEB SCH (07:22)
[2022-07-02] MEDS ORDERED: Cepastat Lozenges 1 LOZ PO PRN (08:16)
[2022-07-02] MEDS ORDERED: Bisacodyl 10 MG SUPP PR PRN (08:16)
[2022-07-02] MEDS ORDERED: Amlodipine 5 MG TAB PO SCH (09:00)
[2022-07-02] MEDS: Fluticasone Propionate Nasal Spray 16 gm Bottle NASAL SCH (09:44)
[2022-07-02] MEDS: Brimonidine Tartrate 0.2% Ophth Soln 5 ml Bottle EA EYE SCH (09:45)
[2022-07-02] MEDS: Timolol 0.5% Ophth Soln 5 ml Bottle EA EYE SCH (09:45)
[2022-07-02] MEDS: Estradiol 1 MG TAB PO SCH (09:47)
[2022-07-02] MEDS: hydrALAZINE 25 MG TAB PO SCH (09:47)
[2022-07-02] MEDS: Primidone 50 MG TAB PO SCH (09:47)
[2022-07-02] MEDS: Topiramate 100 MG TAB PO SCH (09:47)
[2022-07-02] MEDS: Senokot S 8.6-50 MG TAB PO SCH (09:47)
[2022-07-02] MEDS: Acyclovir 400 mg Tablet PO SCH (09:48)
[2022-07-02] MEDS: guaiFENesin ER 600 MG TAB PO SCH (09:48)
[2022-07-02] MEDS: Carvedilol 12.5 MG TAB PO SCH (09:49)
[2022-07-02] MEDS: Aspirin 81 mg Enteric Coated Tablet PO SCH (09:49)
[2022-07-02] MEDS: Dronedarone HCl 400 MG TAB PO SCH (09:49)
[2022-07-02] MEDS: Venlafaxine HCl XR 75 MG CAP PO SCH (09:49)
[2022-07-02] MEDS: Potassium Chloride 20 MEQ TAB PO SCH (09:50)
[2022-07-02] MEDS: Apixaban 5 MG TAB PO SCH (09:50)
[2022-07-02] MEDS: predniSONE 20 MG TAB PO SCH (09:50)
[2022-07-02] MEDS: Oxybutynin 5 MG TAB PO SCH (09:50)
[2022-07-02] MEDS: Polyethylene Glycol 3350 17 GM Packet PER TUBE SCH (09:51)
[2022-07-02 13:06] VITALS: BP 154/78; TEMP 98
== END 2022-07-02 14:35 | DRG 871 ==
LOC: CSHERS 02:12 → CSHERHOLD 05:36 → CSHICU 09:51 → CSHTELE 06-27 18:34
PROVIDERS: ADMIT Emergency Medicine Emergency Medical Services; ATTEND Internal Medicine
PROC: 3E03329 Introduction of Other Anti-infective into Peripheral Vein, Percutaneous Approach (ICD-10-PCS; principal; 2022-06-23)
PROC: 5A09357 Assistance with Respiratory Ventilation, Less than 24 Consecutive Hours, Continuous Positive Airway Pressure (ICD-10-PCS; 2022-06-24)
DX: A41.89 Other specified sepsis (principal); G93.41 Metabolic encephalopathy; I21.A1 Myocardial infarction type 2; J15.211 Pneumonia due to Methicillin susceptible Staphylococcus aureus; J96.01 Acute respiratory failure with hypoxia; J12.1 Respiratory syncytial virus pneumonia; E11.9 Type 2 diabetes mellitus without complications; I10 Essential (primary) hypertension; R00.1 Bradycardia, unspecified; R55 Syncope and collapse; G40.909 Epilepsy, unspecified, not intractable, without status epilepticus; R31.9 Hematuria, unspecified; I48.0 Paroxysmal atrial fibrillation; E03.9 Hypothyroidism, unspecified; K21.9 Gastro-esophageal reflux disease without esophagitis; G47.00 Insomnia, unspecified; E78.5 Hyperlipidemia, unspecified; Z79.899 Other long term (current) drug therapy; Z79.01 Long term (current) use of anticoagulants; Z79.890 Hormone replacement therapy; Z79.82 Long term (current) use of aspirin; Z79.52 Long term (current) use of systemic steroids; Z88.1 Allergy status to other antibiotic agents; Z88.8 Allergy status to other drugs, medicaments and biological substances; Z90.89 Acquired absence of other organs; Z87.891 Personal history of nicotine dependence; Z94.7 Corneal transplant status
CPT/HCPCS: 36415; 36416; 71045; 76770; 80048; 80053; 81001; 82553; 82565; 82805; 83735; 83880; 84100; 84443; 84484; 84520; 85025; 87040; 87070; 87077; 87186; 87205; 87449; 87633; 87807; 87899; 93005; 93010; 93306; 94640; 94660; 94667; 94668; 94760; 96374; 96375; J0456; J0696; J1815; J1940; J2270; J2550; J2700; J2765; J2920; J3370; J3490; J7050; J7512; J7620; J7626